=== PATIENT | male | born 1980 | race African-American/Black ===

== ENCOUNTER 2017-08-01 22:19 | Emergency (ER) | payer OTHER ==
[~2017-08-01] VITALS: Ht 182.9 cm; Wt 93.0 kg
[~2017-08-01 22:19] MED LIST: ACETAMINOPHEN-1 EAC1 PO; ATIVAN0.5 MG; ATIVAN1 MG PO; BENTYL 10 MG CA10 M1 PO; CELEXA 10 MG TA10 M1; CELEXA40 MG; CLONAZEPAM 0.50.5 M1 PO; CLONAZEPAM 1 MG1 M1 PO; FLEXERIL PO; IBUPROFEN 600600 M1 PO; KLONOPIN1 MG NG; KLONOPIN1 MG PO; NAPROSYN500 MG PO; NEXIUM40 MG PO; NORCO 5-325 TA1 EAC1 PO; NORCO 5-325 TA1 EACH PO; NORFLEX100 MG PO; ONDANSETRON HCL4 M2 PO; PEPCID40 MG PO; PHENERGAN 25 MG25 M1 PO; PHENERGAN 25 MG25 M1 RECTAL; PHENERGAN 25 MG25 MG PO; PHENERGAN25 MG RE; PHENERGAN50 MG RC; POTASSIUM20 PO; PRILOSEC40 MG PO; PROMETHAZI6.25 MG/5 PO; PROMETHAZINE12.5 M1 PO; PROMS25 WY RECTAL; REGLAN 10 MG TA10 M1 PO; ROBAXIN500 MG PO; SEROQUEL XR400 M1 PO; SEROQUEL XR400 MG PO; SEROQUEL200 MG PO; SEROQUEL300 MG PO; SEROQUEL400 MG PO; XANAX 0.25 MG0.25 MG PO; XANAX 0.5 MG0.5 M1 PO; XANAX 1 MG TABLE1 MG PO; ZANTAC 150MG T150 M1 PO; ZOFRAN ODT4 MG PO; ZOFRAN4 MG PO; [UNRECOGNIZED DRUG - OTHER]
[2017-08-01] MEDS ORDERED: NAPROSYN500 MG PO (23:40)
== END 2017-08-02 00:16 | disposition home or self-care (01) ==
LOC: ER 22:19
DX: S16.1XXA Strain of muscle, fascia and tendon at neck level, initial encounter (principal); F31.9 Bipolar disorder, unspecified; F41.9 Anxiety disorder, unspecified; I10 Essential (primary) hypertension; Z98.890 Other specified postprocedural states; V89.2XXA Person injured in unspecified motor-vehicle accident, traffic, initial encounter; Y93.89 Activity, other specified; Y92.89 Other specified places as the place of occurrence of the external cause; Y99.8 Other external cause status

== ENCOUNTER 2018-12-03 15:09 | Emergency (ER) | payer OTHER ==
[~2018-12-03] VITALS: Ht 182.9 cm; Wt 88.5 kg
[~2018-12-03 15:09] MED LIST changes: +IBUPROFEN 800800 M1 PO; +QUETIAPINE FUM100 MG PO; +ZOFRAN ODT4 MG SUBLING
[2018-12-03 15:13] VITALS: BP 146/104
[2018-12-03] MEDS ORDERED: PHENERGAN 25 MG25 M1 PO (15:57)
== END 2018-12-03 17:05 | disposition left against medical advice (07) ==
LOC: ER 15:09
DX: F12.188 Cannabis abuse with other cannabis-induced disorder (principal); R10.84 Generalized abdominal pain; R11.0 Nausea; F41.9 Anxiety disorder, unspecified; F31.9 Bipolar disorder, unspecified; I10 Essential (primary) hypertension